=== PATIENT | male | born 1965 | race Caucasian/White ===

== ENCOUNTER 2017-08-01 18:06 | Emergency (ER) | payer SELFPAY ==
[~2017-08-01] VITALS: Ht 177.8 cm; Wt 113.0 kg
[~2017-08-01 18:06] MED LIST: CIPROFLOXACN500 MG PO; FLEXERIL PO; FLEXERIL10 MG PO; FLEXERIL5 MG PO; IMODIUM A-D2 M2 PO; LOPRESSOR 550 MG/TAB PO; LORTAB 10 PO; LORTAB/VICOD5 MG/TAB PO; LORTAB5 PO; NAPROSYN500 MG PO; NO HOME MEDS; NORCO1 TA1 PO; PRILOSEC20 MG PO; VICOPROFEN PO; ZOFRAN ODT8 MG PO
[2017-08-01] MEDS ORDERED: ATENOLOL50 MG PO (18:38)
[2017-08-01] MEDS ORDERED: GABAPENTIN100 MG PO (18:38)
[2017-08-01] MEDS ORDERED: OXYCODONE15 MG PO (18:40)
[2017-08-01] MEDS ORDERED: TIZANIDINE4 MG PO (18:43)
[2017-08-01] MEDS ORDERED: CEPHALEXIN500 MG PO (18:44)
[2017-08-01] MEDS ORDERED: OXYCONTIN10 MG PO (18:44)
[2017-08-01] MEDS ORDERED: BACTRIM DS1 TAB PO (19:37)
[2017-08-01 19:46] VITALS: BP 166/99
== END 2017-08-01 19:45 | disposition home or self-care (01) | DRG 950 ==
LOC: ED 18:06
DX: S61.215D Laceration without foreign body of left ring finger without damage to nail, subsequent encounter (principal); L76.82 Other postprocedural complications of skin and subcutaneous tissue; Z48.02 Encounter for removal of sutures

== ENCOUNTER 2018-12-07 22:10 | Observation (INO) | payer OTHER ==
[~2018-12-07] VITALS: Ht 180.3 cm; Wt 127.6 kg
[~2018-12-07 22:10] MED LIST changes: +ATENOLOL50 MG PO; +BACTRIM DS1 TAB PO; +CEPHALEXIN500 MG PO; +GABAPENTIN100 MG PO; +OXYCODONE15 MG PO; +OXYCONTIN10 MG PO; +TIZANIDINE4 MG PO
[2018-12-07 22:44] LABS: HEMATOCRIT 49.4 % (39.0-50.0); HEMOGLOBIN 16.7 g/dl (14.0-18.0); IMMATURE GRANULOCYTES 0.4 % (0.0-5.0); MEAN CELL VOLUME 98.8 fL CALC (80.0-100.0); MEAN CORPUSCULAR HGB 33.4 pG CALC (26.0-32.0); MEAN CORPUSCULAR HGB CONC 33.8 g/L CALC (32.0-36.0); NEUT# 7.78 thou/uL (1.82-7.42); RED CELL DISTRI WIDTH 12.7 % (11.5-15.5)
[2018-12-07 22:54] LABS: ALBUMIN 4.5 g/dL (3.2-5.0); ALKALINE PHOSPHATASE 99 u/l (38-126); AMYLASE 42 u/l (30-110); ANION GAP 16 (6-22 (CALC)); BILIRUBIN, TOTAL 0.4 mg/dL (0.0-1.4); BUN 34 mg/dL (9-20); BUN/CREATININE RATIO 21 (12-20 (CALC)); CARBON DIOXIDE 25 mmol/l (22-30); CHLORIDE 102 mmol/l (95-108); CREATININE 1.6 mg/dL (0.7-1.3); GFR 46 ML/MIN (>=60 (CALC)); GFR FOR AFR.AMER. 55 ML/MIN (>=60 (CALC)); LIPASE 93 u/l (23-300); POTASSIUM 4.4 mmol/l (3.5-5.1); SGOT/AST 32 u/l (17-59); SODIUM 139 mmol/l (137-146); TOTAL PROTEIN 7.6 g/dL (6.3-8.2)
[2018-12-07 23:05] LABS: ACT PARTIAL THROMBO TIME 27.9 SECONDS (20.0-32.5); INTERNATIONAL NORMALIZED RATIO 0.9 RATIO (0.7-1.3); PROTHROMBIN TIME 9.8 SECONDS (9.0-12.5)
[2018-12-07 23:06] LABS: MYOGLOBIN 67 ng/mL (0 - 121)
[2018-12-07] MEDS ORDERED: LISINOPRIL/HYDR1 TA1 PO (23:35)
[2018-12-07 23:41] LABS: URINE BILIRUBIN - DIPSTICK NEGATIVE (NEGATIVE); URINE BLOOD DIPSTICK NEGATIVE (NEGATIVE); URINE COLOR YELLOW; URINE GLUCOSE - DIPSTICK NEGATIVE (NEGATIVE); URINE KETONE NEGATIVE (NEGATIVE); URINE LEUK ESTERASE NEGATIVE (NEGATIVE); URINE NITRITE - DIPSTICK NEGATIVE (Negative); URINE PH 5.5 (4.5-8.0); URINE PROTEIN - DIPSTICK NEGATIVE (NEG-TRACE); URINE SPECIFIC GRAVITY 1.025; URINE UROBILINOGEN - DIPSTICK 0.2 E.U./dL (0.2)
[2018-12-07 23:47] LABS: BARBITURATES NEGATIVE (NEGATIVE); COCAINE NEGATIVE (NEGATIVE); METHADONE NEGATIVE (NEGATIVE); TETRAHYDROCANNABIONOL NEGATIVE (NEGATIVE); TRICYLIC ANTIDEPRESSANTS NEGATIVE (NEGATIVE)
[2018-12-07 23:48] LABS: OXCYCODONE NEGATIVE (NEGATIVE)
[2018-12-08 00:41] VITALS: BP 121/77
[2018-12-08 04:15] VITALS: BP 136/89
[2018-12-08 04:40] LABS: CHOLESTEROL HDL RATIO 3.6 (<4.4 (CALC))
[2018-12-08 08:35] VITALS: BP 118/71
[2018-12-08 08:45] VITALS: BP 118/71
== END 2018-12-08 11:03 | disposition left against medical advice (07) | DRG 313 ==
LOC: ED 22:10 → ED-I 22:52 → ED 22:52 → ED-I 23:50 → ED 12-08 00:08 → MS2 12-08 00:09
PROVIDERS: Emergency Medicine; ADMIT Internal Medicine; ATTEND Internal Medicine
DX: R07.9 Chest pain, unspecified (principal); I10 Essential (primary) hypertension; F17.200 Nicotine dependence, unspecified, uncomplicated
CPT/HCPCS: G0378